=== PATIENT | male | born 2000 | race Hispanic/Latino ===

== ENCOUNTER 2020-10-02 07:45 | Emergency (ER) | payer OTHER, SELFPAY ==
[2020-10-02 22:34] LABS: SARS-CoV-2 PCR by NAA Not Detected (NotDetected)
== END 2020-10-02 10:30 | disposition home or self-care (01) ==
LOC: MADERS 07:45
DX: J11.1 Influenza due to unidentified influenza virus with other respiratory manifestations (principal); J45.909 Unspecified asthma, uncomplicated; Z20.822 Contact with and (suspected) exposure to COVID-19
CPT/HCPCS: 71045; 87635; 87804; J7620; U0003; U0005

== ENCOUNTER 2022-06-28 14:53 | Emergency (ER) | payer OTHER, SELFPAY ==
[2022-06-28] MEDS ORDERED: Cyclobenzaprine 10 MG TAB ONE (16:19)
[2022-06-28] MEDS ORDERED: Ibuprofen 800 MG TAB ONE (16:19)
== END 2022-06-28 17:08 | disposition home or self-care (01) ==
LOC: MADERS 14:53
DX: S20.212A Contusion of left front wall of thorax, initial encounter (principal); W17.89XA Other fall from one level to another, initial encounter
CPT/HCPCS: 94760

== ENCOUNTER 2022-08-22 21:55 | Emergency (ER) | payer OTHER, SELFPAY ==
[2022-08-22] MEDS ORDERED: Orphenadrine Citrate 60 MG/2 ML VIAL ONE (22:17)
[2022-08-22] MEDS ORDERED: Ketorolac Tromethamine 60 MG/2 ML VIAL ONE (22:17)
[2022-08-22 22:20] LABS: #Basophils 0.2 thou/uL (0.0-0.2); #Eosinphils 0.2 thou/uL (0.0-0.7); #Lymphocytes 2.3 thou/uL (1.20-3.40); #Monocytes 0.8 thou/uL (0.11-0.59); #Neutrophils 4.8 thou/uL (1.40-6.50); %Eosinophils 2.7 % (0.0-10.0); %Lymphocytes 27.5 % (21.0-51.0); %Monocytes 9.2 % (0.0-10.0); %Neutrophils 58.6 % (42.0-75.0); Hemoglobin 16.4 g/dL (14.0-18.0); Mean Corpuscular HGB CONC 34.6 g/dL (32.0-36.0); Mean Corpuscular Hemoglobin 29.4 pg (27.0-31.0); Mean Platelet Volume 8.1 fL (7.4-10.4); Platelet Count 355 10x3/uL (130-400); RBC Distribution Width 11.3 % (11.5-14.5); Red Blood Cell (RBC) Count 5.57 mill/uL (4.70-6.10); White Blood Cell (WBC) Count 8.2 10x3/uL (4.8-10.8)
[2022-08-22 22:37] LABS: ALT (SGPT) 19 U/L (8-55); AST (SGOT) 18 U/L (5-34); Albumin 4.5 g/dL (3.5-5.0); Alkaline Phosphatase 70 U/L (40-110); Anion Gap 15 mmol/L (10-20); BUN (Urea Nitrogen) 13 mg/dL (8.9-20.6); Bilirubin, Total 0.4 mg/dL (0.2-1.2); Calc. Creatinine Clearance 0 mL/min (70-130); Carbon Dioxide 26 mmol/L (22-29); Chloride 102 mmol/L (98-107); Estimated GFR 99; Globulin 2.9 g/dL (2.4-3.5); Glucose 87 mg/dL (70-105); Potassium 3.7 mmol/L (3.5-5.1); Protein, Total 7.4 g/dL (6.0-8.3); Sodium 139 mmol/L (136-145)
== END 2022-08-22 22:47 | disposition home or self-care (01) ==
LOC: MADERS 21:55
DX: S30.811A Abrasion of abdominal wall, initial encounter (principal); R29.898 Other symptoms and signs involving the musculoskeletal system; V86.99XA Unspecified occupant of other special all-terrain or other off-road motor vehicle injured in nontraffic accident, initial encounter
CPT/HCPCS: 36415; 71045; 72170; 80053; 85025; 96372; J1885; J2360

== ENCOUNTER 2023-01-31 21:06 | Emergency (ER) | payer SELFPAY | END 2023-01-31 23:37 | disposition home or self-care (01) | LOC: MADERS 21:06 | DX: S20.211A Contusion of right front wall of thorax, initial encounter (principal); W10.9XXA Fall (on) (from) unspecified stairs and steps, initial encounter | CPT/HCPCS: 71046 ==